=== PATIENT | male | born 1955 | race Caucasian/White ===

== ENCOUNTER 2017-01-04 19:41 | Emergency (ER) | payer OTHER ==
[2017-01-04 19:47] VITALS: BP 170/69
[2017-01-04] MEDS ORDERED: predniSONE 20 MG Tab PO ONE (19:59)
[2017-01-04] MEDS ORDERED: Cephalexin 500 MG Cap PO ONE ×2 (19:59→20:12)
--- NOTE | 2017-01-04 20:09 | EDM.PDOC ---
ED HPI GENERAL MEDICAL PROBLEM - General Chief Complaint: Bite:Animal, Insect Stated Complaint: BEE BITE,ARM IS SWOLLEN/HOT, [id number] Time Seen by Provider: 01/04/17 19:55 Source of Information: Reports: Patient History Limitations: Reports: No Limitations - History of Present Illness INITIAL COMMENTS - FREE TEXT/NARRATIVE: This 61 yo male patient reports to the ED after being stung by a bee yesterday with increased swelling of his right forearm. The patient reports he started noticing the swelling about 2-3 hours after the sting. The patient has been taking Benadryl with little to no symptom relief. Onset: Sudden Onset Date: 01/03/17 Duration: Constant, Getting Worse Location: Reports: Upper Extremity, Right Quality: Reports: Ache, Dull Severity: Moderate Improves with: Reports: None Worsens with: Reports: None Associated Symptoms: Reports: No Other Symptoms Treatments [employer]: Reports: Other Medication(s) (Benadryl) Right Lower Arm Pain Score (Numeric/FACES): 5 - Related Data Allergies Allergy/AdvReac Type Severity Reaction Status Date / Time No Known Allergies Allergy Verified 01/04/17 19:47 Home Meds: Home Meds . [No Known Home Meds] 01/04/17 [History] Past Medical History - Past Surgical History Musculoskeletal Surgical History: Reports: Arthroscopic Knee Social & Family History - Tobacco Use Smoking Status *Q: Never Smoker Second Hand Smoke Exposure: No - Recreational Drug Use Recreational Drug Use: No ED ROS GENERAL - Review of Systems Review Of Systems: ROS reveals no pertinent complaints other than HPI. ED EXAM, ANIMAL BITE - Physical Exam Exam: See Below Exam Limited By: No Limitations General Appearance: Alert, WD/WN, Moderate Distress Eye Exam: Bilateral Eye: EOMI, Normal Inspection, PERRL Ears: Normal External Exam, Normal Canal, Hearing Grossly Normal, Normal TMs Nose: Normal Inspection, Normal Mucosa, No Blood Throat/Mouth: Normal Inspection, Normal Lips, Normal Teeth, Normal Gums, Normal Oropharynx, Normal Voice, No Airway Compromise Head: Atraumatic, Normocephalic Neck: Normal Inspection, Supple, Non-Tender, Full Range of Motion Respiratory/Chest: No Respiratory Distress, Lungs Clear, Normal Breath Sounds, No Accessory Muscle Use, Chest Non-Tender Cardiovascular: Normal Peripheral Pulses, Regular Rate, Rhythm, No Edema, No Gallop, No JVD, No Murmur, No Rub GI/Abdominal: Normal Bowel Sounds, Soft, Non-Tender, No Organomegaly, No Distention, No Abnormal Bruit, No Mass (Male) Exam: Deferred Rectal (Males) Exam: Deferred Back Exam: Normal Inspection, Full Range of Motion, NT Extremities: Normal Range of Motion, No Pedal Edema, Normal Capillary Refill Neurological: Alert, Oriented, CN II-XII Intact, Normal Cognition, Normal Gait, Normal Reflexes, No Motor/Sensory Deficits Psychiatric: Normal Affect, Normal Mood Skin Exam: Other (The patient has a developing cellulitis of his right forearm due to a bee sting. ) Course - Vital Signs Last Recorded V/S: Last Vital Signs Temp 36.5 C 01/04/17 19:43 Pulse 100 01/04/17 19:43 Resp 18 01/04/17 19:43 BP 170/69 H 01/04/17 19:43 Pulse Ox 100 01/04/17 19:43 - Orders/Labs/Meds Meds: Medications Discontinued Medications Generic Name Dose Route Start Last Admin Trade Name Drea PRN Reason Stop Dose Admin Cephalexin 500 mg 01/04/17 19:59 01/04/17 20:11 Keflex PO 01/04/17 20:00 500 mg ONETIME ONE Administration Prednisone 40 mg 01/04/17 19:59 01/04/17 20:11 Prednisone PO 01/04/17 20:00 40 mg ONETIME ONE Administration Departure - Departure Time of Disposition: 20:06 Disposition: Home, Self-Care 01 Condition: Fair Clinical Impression: Cellulitis Qualifiers: Site of cellulitis: extremity Site of cellulitis of extremity: upper extremity Laterality: right Qualified Code(s): L03.113 - Cellulitis of right upper limb Bee sting reaction Qualifiers: Encounter type: initial encounter Injury intent: accidental or unintentional Qualified Code(s): T63.441A - Toxic effect of venom of bees, accidental ( unintentional), initial encounter - Discharge Information Instructions: Cellulitis, Adult, Huyh-dt-Igmi, Insect Bite, Mlpd-on-Qnal Forms: ED Department Discharge Care Plan Goals: The patient was advised of the examination results during the visit. The patient was given an oral dose of Keflex (500 mg) and Prednisone (40 mg) while in the ED. The patient was discharged with a dose of Keflex (500 mg) to take in the morning. The patient was also discharged with a script for Keflex (500 mg) # 56 to take 1 by mouth 4 times per day for 14 days and Prednisone (20 mg) #10 to take 2 by mouth daily for 5 days. If the patient has any additional symptoms or concerns, the patient should follow-up with his primary care facility or return to the emergency department.
[2017-01-04] MEDS ORDERED: Cephalexin 500 MG Cap ONE (20:12)
== END 2017-01-04 20:17 | disposition home or self-care (01) ==
LOC: DL.ED 19:41
DX: T63.441A Toxic effect of venom of bees, accidental (unintentional), initial encounter (principal); L03.113 Cellulitis of right upper limb
CPT/HCPCS: 99282; A9270